=== PATIENT | male | born 1955 | race Caucasian/White ===

== ENCOUNTER 2019-05-21 21:05 | Observation (INO) ==
[2019-05-21] MEDS ORDERED: 0.9 % Sodium Chloride 1,000 ML IVC ONE (21:41)
--- NOTE | 2019-05-21 21:45 | Emergency Department Note ---
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 Lung location: unspecified part of lung Qualified Code(s): B59 - Pneumocystosis HIV (human immunodeficiency virus infection) Qualifiers: HIV symptom status: symptomatic Qualified Code(s): B20 - Human immunodeficiency virus [HIV] disease Disposition: Admitted As Inpatient Condition: Fair Referrals: Umair Littlejohn MD [Primary Care Provider] - Forms: ED Satisfaction Letter Time of Disposition: 07:31 Weakness HPI - General Chief complaint: ED Weakness Stated complaint: cp Time Seen by Provider: 05/21/19 21:29 Source: patient, family Limitations: altered mental status Nursing Notes Reviewed: Yes Vital Signs Reviewed: Yes - History of Present Illness HPI Narrative: 63-year-old male is brought to the emergency department for evaluation of generalized weakness. According to family members the patient is weak that he is unable to ambulate. The patient is slow to respond but states his only complaint is some low back discomfort. He denies any current shortness of breath, chest pain, abdominal pain, nausea vomiting, diarrhea, or urinary symptoms of dysuria urgency frequency or hematuria. Patient does have significant chronic medical problems including HIV, nonalcoholic cirrhosis, and osteomyelitis of his right heel. He was recently admitted in March at [facility] related to chest pain shortness of breath and ascites Pain Scale: 0 - Related Data Home Medications Medication Instructions Recorded Confirmed Gabapentin [Neurontin] 900 mg PO TID 10/04/17 05/21/19 Insulin DETEMIR [Levemir Flextouch] 38 unit SQ QPM 10/04/17 05/21/19 Insulin DETEMIR [Levemir Flextouch] 42 unit SQ QAM 10/04/17 05/21/19 Nadolol 20 mg PO DAILY 10/04/17 05/21/19 Omeprazole [PriLOSEC] 20 mg PO DAILY 10/04/17 05/21/19 OxyCODONE Immed Rel [Roxicodone 10 10 mg PO Q6H PRN 10/04/17 05/21/19 MG] Oxycodone HCl [Roxicodone 30 MG 30 mg PO Q4H PRN 10/04/17 05/21/19 Immed Release] Somatropin [Serostim] 6 mg SQ DAILY 10/04/17 05/21/19 Dextroamphetamine/Amphetamine 10 mg PO DAILY 03/25/19 05/21/19 [Adderall 10 mg Tablet] SitaGLIPtin [Januvia] 100 mg PO DAILY 03/25/19 05/21/19 ARIPiprazole [Abilify] 5 mg PO DAILY 05/21/19 05/21/19 Ciprofloxacin [Cipro] 500 mg PO BID 05/21/19 05/21/19 Cyclobenzaprine [Flexeril] 10 mg PO TID 05/21/19 05/21/19 Efavirenz/Emtricitabine/Tenofo 1 tab PO DAILY 05/21/19 05/21/19 [Atripla Tablet] Empagliflozin [Jardiance] 25 mg PO DAILY 05/21/19 05/21/19 Furosemide [Lasix] 40 mg PO DAILY 05/21/19 05/21/19 Metformin HCl 1,000 mg PO BID 05/21/19 05/21/19 Pioglitazone [Actos] 30 mg PO DAILY 05/21/19 05/21/19 Rifaximin [Xifaxan] 550 mg PO BID 05/21/19 05/21/19 Spironolactone [Aldactone] 25 mg PO HS 05/21/19 05/21/19 Spironolactone [Aldactone] 50 mg PO DAILY 05/21/19 05/21/19 Allergies Allergy/AdvReac Type Severity Reaction Status Date / Time No Known Allergies Allergy Verified 06/21/15 21:11 Review of Systems: As Per HPI Limitations: ROS unobtainable due to patients medical condition Past Medical History - Past Medical History Attestation: Yes The following information was validated with the patient. Source: patient Medical history: Reports: cirrhosis, diabetes, HIV/AIDS, hyperlipidemia, hypertension, renal disease, other Surgical history: Reports: cholecystectomy, other Psychiatric history: Reports: anxiety, depression - Social History Smoking Status: Never smoker Smokeless Tobacco Status: No Alcohol use: Reports: none Drug use: Reports: none Physical Exam Constitutional: Patient is awake but slow to respond, appears chronically ill and emaciated and cooperative. HENT: Head: Normocephalic and atraumatic. Right Ear: External ear normal. Left Ear: External ear normal. Nose: Nose normal. Mouth/Throat: Oropharynx is clear and mucous membranes show moderate dehydration Eyes: Conjunctivae and EOM are normal. Pupils are equal, round, and reactive to light. Right eye exhibits [no] discharge. Left eye exhibits [no] discharge. Neck: Trachea is midline, normal range of motion and [phonation normal]. Neck supple. Cardiovascular: [Regular rhythm], S1 normal, S2 normal, normal heart sounds and intact distal pulses. Exam reveals no gallop and no friction rub. No murmur heard. [Capillary refill is brisk.] [Peripheral pulses are 2+] Pulmonary/Chest: Effort [normal] No stridor. [No] tachypnea. [No] respiratory distress. There are [no] decreased breath sounds. [There no wheezes, no rhonchi, or rales.] Abdominal: Soft. [Bowel sounds are normal]. There exhibits ascites distention of a mild amount . There is no significant tenderness, [no] CVA tenderness. There is [no rigidity, no rebound, no guarding]. Musculoskeletal: Normal range of motion of uninvolved extremities. There exhib its [no edema]. He has no tenderness of palpation of his back or with movement Neurological: Patient is awake and slow to respond he sometimes can answer questions and other times he does not answer you Patient displays no atrophy and no tremor. Moves all 4 extremities equally without gross deficit. No cranial nerve deficit and exhibits normal muscle tone. Coordination normal grossly. Skin: Skin is warm and dry. No erythema. No rash noted. Psychiatric: Patient has a depressed mood Course Course Narrative: Patient was discussed with [facility] who currently is at capacity. They are putting him on a waiting list. I am going to treat him overnight with IV fluids and antibiotics for possible Pneumocystis carinii infection. Patient was discussed with hospitalist for observation admission until bed becomes available at [facility] - Reevaluation(s) Reevaluation #1: Patient has been observed for 10 hours here in the emergency department and remains hemodynamically stable. Pulse oximeters continued to remain high at 97 and 98%. I discussed the case with Dr. Fink for hospitalist admission until bed becomes available at [facility] Vital Signs Temperature 99.8 F H 05/21/19 21:12 Pulse Rate 111 05/21/19 21:12 Respiratory Rate 20 05/21/19 21:12 Blood Pressure 133/67 05/21/19 21:12 O2 Sat by Pulse Oximetry 95 05/21/19 21:12 Temperature 99.8 F H 05/21/19 21:12 Pulse Rate 93 05/22/19 06:30 Respiratory Rate 16 05/22/19 06:30 Blood Pressure 113/60 05/22/19 06:30 O2 Sat by Pulse Oximetry 98 05/22/19 05:00 Oxygen Delivery Oxygen Delivery Room Air Weakness - Medical Records Medical records reviewed: Yes I reviewed the patient's medical records. - Lab Data Lab results reviewed: Yes I reviewed the patient's lab results. Result diagrams: 05/21/19 21:55 05/21/19 21:55 Lab Results 05/21/19 05/21/19 05/21/19 Range/Units 21:08 21:55 21:55 WBC 9.3 (4.3-11.1) K/mcL RBC 2.88 L (4.19-5.50) M/mcL Hgb 8.0 L (12.9-16.9) g/dL Hct 25.0 L (37.5-50.1) % MCV 86.8 (83.0-100.0) fL MCH 27.8 L (28.0-33.3) pg MCHC 32.0 (31.6-35.5) g/dL RDW 19.1 H (11.5-14.5) % Plt Count 82 L (140-400) K/mcL MPV 8.8 L (9.4-12.4) fL Immature Gran % 0.6 (0-4) % Seg Neutrophils % 86.8 % Lymphocytes % 6.9 % Monocytes % 5.6 % Eosinophils % 0.0 % Basophils % 0.1 % Neutrophils # 8.1 (1.6-8.9) K/mcL Lymphocytes # 0.6 (0.6-4.6) K/mcL Monocytes # 0.5 (0.0-1.3) K/mcL Eosinophils # 0.0 (0.0-0.6) K/mcL Basophils # 0.0 (0.0-0.2) K/mcL PT 13.8 H (9.4-12.1) Seconds INR 1.2 APTT (26.0-36.0) Seconds Sodium (136-145) mEq/L Potassium (3.5-5.1) mEq/L Chloride (98-107) mEq/L Carbon Dioxide (23-29) mEq/L BUN (8-23) mg/dL Creatinine (0.70-1.30) mg/dL Est GFR ( Amer) (> 60) Est GFR (Non-Af Amer) (> 60) BUN/Creatinine Ratio (6-26) Glucose (70-105) mg/dL POC Glucose 191 H (70-99) mg/dL Calculated Osmolality (280-300) Lactic Acid (0.5-2.2) mmol/L Calcium (8.6-10.3) mg/dL Magnesium (1.6-2.6) mg/dL Total Bilirubin (0.3-1.0) mg/dL AST (13-39) Units/L ALT (7-52) Units/L Alkaline Phosphatase (34-104) Units/L Ammonia (16-53) mcmol/L Troponin I (< 0.04) ng/mL Serum Total Protein (6.4-8.9) g/dL Albumin (3.5-5.7) g/dL Globulin (2.4-3.5) g/dL Albumin/Globulin Ratio (1.1-2.2) Urine Color (Yellow) Urine Clarity (Clear) Urine pH (5.0-8.0) pH Units Ur Specific [place] (1.010-1.025) Urine Protein (Neg-Trace) mg/dL Urine Glucose (UA) (Normal) mg/dL Urine Ketones (Negative) mg/dL Urine Blood (Negative) Urine Nitrite (Negative) Urine Bilirubin (Negative) Urine Urobilinogen (Normal) mg/dL Ur Leukocyte Esterase (Negative) Urine Microscopic RBC (0-3) per hpf Amorphous Sediment (Few) Ur Culture Indicated? (NO) 05/21/19 05/21/19 05/21/19 Range/Units 21:55 21:55 21:55 WBC (4.3-11.1) K/mcL RBC (4.19-5.50) M/mcL Hgb (12.9-16.9) g/dL Hct (37.5-50.1) % MCV (83.0-100.0) fL MCH (28.0-33.3) pg MCHC (31.6-35.5) g/dL RDW (11.5-14.5) % Plt Count (140-400) K/mcL MPV (9.4-12.4) fL Immature Gran % (0-4) % Seg Neutrophils % % Lymphocytes % % Monocytes % % Eosinophils % % Basophils % % Neutrophils # (1.6-8.9) K/mcL Lymphocytes # (0.6-4.6) K/mcL Monocytes # (0.0-1.3) K/mcL Eosinophils # (0.0-0.6) K/mcL Basophils # (0.0-0.2) K/mcL PT (9.4-12.1) Seconds INR APTT 31.6 (26.0-36.0) Seconds Sodium 133 L (136-145) mEq/L Potassium 3.9 (3.5-5.1) mEq/L Chloride 100 (98-107) mEq/L Carbon Dioxide 28 (23-29) mEq/L BUN 19 (8-23) mg/dL Creatinine 1.42 H (0.70-1.30) mg/dL Est GFR ( Amer) > 60 (> 60) Est GFR (Non-Af Amer) 51 L (> 60) BUN/Creatinine Ratio 13 (6-26) Glucose 194 H (70-105) mg/dL POC Glucose (70-99) mg/dL Calculated Osmolality 284 (280-300) Lactic Acid (0.5-2.2) mmol/L Calcium 8.4 L (8.6-10.3) mg/dL Magnesium 2.1 (1.6-2.6) mg/dL Total Bilirubin 1.9 H (0.3-1.0) mg/dL AST 50 H (13-39) Units/L ALT 25 (7-52) Units/L Alkaline Phosphatase 393 H (34-104) Units/L Ammonia 49 (16-53) mcmol/L Troponin I 0.03 (< 0.04) ng/mL Serum Total Protein 7.9 (6.4-8.9) g/dL Albumin 2.9 L (3.5-5.7) g/dL Globulin 5.0 H (2.4-3.5) g/dL Albumin/Globulin Ratio 0.6 L (1.1-2.2) Urine Color (Yellow) Urine Clarity (Clear) Urine pH (5.0-8.0) pH Units Ur Specific [place] (1.010-1.025) Urine Protein (Neg-Trace) mg/dL Urine Glucose (UA) (Normal) mg/dL Urine Ketones (Negative) mg/dL Urine Blood (Negative) Urine Nitrite (Negative) Urine Bilirubin (Negative) Urine Urobilinogen (Normal) mg/dL Ur Leukocyte Esterase (Negative) Urine Microscopic RBC (0-3) per hpf Amorphous Sediment (Few) Ur Culture Indicated? (NO) 05/21/19 05/21/19 Range/Units 21:55 22:47 WBC (4.3-11.1) K/mcL RBC (4.19-5.50) M/mcL Hgb (12.9-16.9) g/dL Hct (37.5-50.1) % MCV (83.0-100.0) fL MCH (28.0-33.3) pg MCHC (31.6-35.5) g/dL RDW (11.5-14.5) % Plt Count (140-400) K/mcL MPV (9.4-12.4) fL Immature Gran % (0-4) % Seg Neutrophils % % Lymphocytes % % Monocytes % % Eosinophils % % Basophils % % Neutrophils # (1.6-8.9) K/mcL Lymphocytes # (0.6-4.6) K/mcL Monocytes # (0.0-1.3) K/mcL Eosinophils # (0.0-0.6) K/mcL Basophils # (0.0-0.2) K/mcL PT (9.4-12.1) Seconds INR APTT (26.0-36.0) Seconds Sodium (136-145) mEq/L Potassium (3.5-5.1) mEq/L Chloride (98-107) mEq/L Carbon Dioxide (23-29) mEq/L BUN (8-23) mg/dL Creatinine (0.70-1.30) mg/dL Est GFR ( Amer) (> 60) Est GFR (Non-Af Amer) (> 60) BUN/Creatinine Ratio (6-26) Glucose (70-105) mg/dL POC Glucose (70-99) mg/dL Calculated Osmolality (280-300) Lactic Acid 1.3 (0.5-2.2) mmol/L Calcium (8.6-10.3) mg/dL Magnesium (1.6-2.6) mg/dL Total Bilirubin (0.3-1.0) mg/dL AST (13-39) Units/L ALT (7-52) Units/L Alkaline Phosphatase (34-104) Units/L Ammonia (16-53) mcmol/L Troponin I (< 0.04) ng/mL Serum Total Protein (6.4-8.9) g/dL Albumin (3.5-5.7) g/dL Globulin (2.4-3.5) g/dL Albumin/Globulin Ratio (1.1-2.2) Urine Color Dark Yellow (Yellow) Urine Clarity Slightly Cloudy A (Clear) Urine pH 6.0 (5.0-8.0) pH Units Ur Specific [place] 1.020 (1.010-1.025) Urine Protein 100 H (Neg-Trace) mg/dL Urine Glucose (UA) >=1000 H (Normal) mg/dL Urine Ketones Negative (Negative) mg/dL Urine Blood Large H (Negative) Urine Nitrite Negative (Negative) Urine Bilirubin Negative (Negative) Urine Urobilinogen Normal (Normal) mg/dL Ur Leukocyte Esterase Negative (Negative) Urine Microscopic RBC 5-15 H (0-3) per hpf Amorphous Sediment Few (Few) Ur Culture Indicated? NO (NO) - Radiology Data Radiology results reviewed: Yes I reviewed the patient's radiology results. IMPRESSION: Patchy airspace opacification seen in both lungs could represent a multifocal pneumonia - EKG Data EKG attestation: Yes I reviewed and interpreted this EKG. EKG shows normal: sinus rhythm, axis, intervals, QRS complexes, ST-T waves Rate: tachycardia Interpretation: no acute changes
[2019-05-21 22:09] LABS: Basophils % 0.1 %; Immature Granulocytes % 0.6 % (0-4); Lymphocytes # 0.6 K/mcL (0.6-4.6); Lymphocytes % 6.9 %; Mean Corpuscular Hemoglobin 27.8 pg (28.0-33.3); Mean Corpuscular Volume 86.8 fL (83.0-100.0); Mean Platelet Volume 8.8 fL (9.4-12.4); Monocytes # 0.5 K/mcL (0.0-1.3); Monocytes % 5.6 %; Neutrophils # 8.1 K/mcL (1.6-8.9); Red Blood Count 2.88 M/mcL (4.19-5.50); Red Cell Distribution Width 19.1 % (11.5-14.5); Segmented Neutrophils % 86.8 %; White Blood Count 9.3 K/mcL (4.3-11.1)
[2019-05-21 22:10] LABS: Platelet Count 82 K/mcL (140-400)
[2019-05-21 22:12] LABS: INR 1.2; Prothrombin Time 13.8 Seconds (9.4-12.1)
[2019-05-21 22:23] LABS: Troponin I 0.03 ng/mL (< 0.04)
[2019-05-21 22:24] LABS: Alanine Aminotransferase 25 Units/L (7-52); Albumin 2.9 g/dL (3.5-5.7); Albumin/Globulin Ratio 0.6 (1.1-2.2); Alkaline Phosphatase 393 Units/L (34-104); Aspartate Amino Transferase 50 Units/L (13-39); BUN/Creatinine Ratio 13 (6-26); Bilirubin,Total 1.9 mg/dL (0.3-1.0); Blood Urea Nitrogen 19 mg/dL (8-23); Calcium 8.4 mg/dL (8.6-10.3); Carbon Dioxide 28 mEq/L (23-29); Chloride 100 mEq/L (98-107); Glucose 194 mg/dL (70-105); Magnesium 2.1 mg/dL (1.6-2.6); Osmolality,Calculated 284 (280-300); Potassium 3.9 mEq/L (3.5-5.1); Sodium 133 mEq/L (136-145); Total Protein 7.9 g/dL (6.4-8.9); eGFR For African Americans > 60 (> 60); eGFR For Non-African Americans 51 (> 60)
[2019-05-21 22:54] LABS: Bilirubin,Urine Negative (Negative); Blood,Urine Large (Negative); Clarity,Urine Slightly Cloudy (Clear); Glucose,Urine (UA) >=1000 mg/dL (Normal); Ketones,Urine Negative (Negative); Leukocyte Esterase,Urine Negative (Negative); Nitrite,Urine Negative (Negative); Protein,Urine 100 mg/dL (Neg-Trace); Urobilinogen,Urine Normal (Normal)
[2019-05-21 23:00] LABS: Amorphous Sediment,Urine Few (Few); Color,Urine Dark Yellow (Yellow)
[2019-05-21] MEDS ORDERED: Sulfamethoxazole/Trimeth DS 1 EACH TABLET PO ONE (23:03)
[2019-05-21] MEDS ORDERED: 0.9 % Sodium Chloride 1,000 ML IVC SCH (23:30)
[2019-05-22] MEDS ORDERED: WATER IVPB SCH
[2019-05-22] MEDS ORDERED: SULFAMETHOXAZOLE IVPB SCH
[2019-05-22] MEDS ORDERED: TRIMETH IVPB SCH
[2019-05-22] MEDS ORDERED: D5 IVPB SCH
[2019-05-22] MEDS ORDERED: *HR* OxyCODONE Immed Rel 15 MG TABLET PO PRN (07:28)
[2019-05-22] MEDS ORDERED: *HR* OxyCODONE Immed Rel 5 MG TABLET PO PRN (07:28)
[2019-05-22] MEDS ORDERED: Naloxone 0.4 MG/ML INJ IVP PRN (07:28)
[2019-05-22] MEDS ORDERED: Ondansetron 4 MG/2 ML VIAL IVP PRN (07:28)
[2019-05-22] MEDS ORDERED: D5 IVPB ONE ×2 (08:00)
[2019-05-22] MEDS ORDERED: WATER IVPB ONE ×2 (08:00)
[2019-05-22] MEDS ORDERED: TRIMETH IVPB ONE ×2 (08:00)
[2019-05-22] MEDS ORDERED: SULFAMETHOXAZOLE IVPB ONE ×2 (08:00)
[2019-05-22] MEDS ORDERED: TENOFO PO SCH ×2 (09:00→21:00)
[2019-05-22] MEDS ORDERED: EFAVIRENZ PO SCH ×2 (09:00→21:00)
[2019-05-22] MEDS ORDERED: Insulin DETEMIR 100 UNIT/ML X5UNITS SQ SCH ×3 (09:00→18:00)
[2019-05-22] MEDS ORDERED: EMTRICITABINE PO SCH ×2 (09:00→21:00)
--- NOTE | 2019-05-22 10:28 | Internal Med History&Physical ---
Date of Encounter: 05/22/19 Time of Encounter: 10:25 Assessment and Plan (1) Pneumocystis carinii pneumonia Current visit: Yes Status: Acute Patient presented to emergency department with complaints of malaise. Denied any fever or chills. Denies productive cough or dyspnea. Chest x-ray and emergency department showed multifocal areas of pneumonia. Patient was started on IV Bactrim. We will continue with current antibiotics. Patient awaiting tra nsfer to [facility] for further management due to complications of his HIV. Qualifiers: Laterality: bilateral Lung location: unspecified part of lung Qualified Code(s): B59 - Pneumocystosis (2) Osteomyelitis Current visit: Yes Status: Acute Patient with current treatment of osteomyelitis of a right heel. Patient arrived with wound VAC in place. Due to policies of no outside source wound VAC being on the unit, we will remove the wound VAC and continue with wet-to-dry dressing changes until patient is transferred to [facility]. Patient with no complain ts of discomforts to the wound as he has neuropathy. Qualifiers: Osteomyelitis type: unspecified type Osteomyelitis location: foot Laterality: right Qualified Code(s): M86.9 - Osteomyelitis, unspecified (3) HIV (human immunodeficiency virus infection) Current visit: Yes Status: Acute Patient admitted with diarrhea, likely secondary to his HIV. We will continue with current antiviral medications that he was taken at home. Patient awaiting for bed at [facility] for further evaluation and treatment with infectious disease at [facility], as they are familiar with patient Qualifiers: HIV symptom status: symptomatic Qualified Code(s): B20 - Human immunodeficiency virus [HIV] disease (4) Cirrhosis Current visit: Yes Status: Acute Patient with a history of cirrhosis and ascites. Currently no issues noted with no signs of moderate ascites on exam. Patient was slight elevations on LFTs during admission drawl. We will continue to monitor patient's status to serial labs while he is admitted here. Qualifiers: Hepatic cirrhosis type: unspecified hepatic cirrhosis Ascites presence: with ascites Qualified Code(s): K74.60 - Unspecified cirrhosis of liver; R18.8 - Other ascites (5) Diabetes Current visit: Yes Status: Chronic No acute issues at this time. We will continue with current medication regimen the patient was taken at home and will monitor patient's glucose through fingersticks Qualifiers: Diabetes mellitus type: type 2 Diabetes mellitus intermodal owner operator truck driver insulin use: unspecified intermodal owner operator truck driver insulin use status Diabetes mellitus complication status: with other specified complication Qualified Code(s): E11.69 - Type 2 diabetes mellitus with other specified complication Internal Medicine - H&P: HPI Chief complaint: pneumonia Admitted From: Emergency Dept Plans for Post Hospital Care: Home History of present illness: Mr. Mccoy is a 63 year old male, who presented to the emergency department for evaluation of generalized weakness. According to family members the patient is weak that he is unable to ambulate. Patient's ambulation was also complicated by a non-healing wound to his right heel, which she has been treated for osteomyelitis and currently has a wound VAC in place. Medical records showed that while in the emergency department he denied any current shortness of breath, chest pain, abdominal pain, nausea vomiting, diarrhea, or urinary symptoms of dysuria urgency frequency or hematuria. Patient does have significant chronic medical problems including HIV, nonalcoholic cirrhosis, and osteomyelitis of his right heel. He was recently admitted in March at [facility] related to chest pain shortness of breath and ascites. Patient continues to deny any discomforts or shortness of breath. Patient denies any pain to his right foot, which she states is due to the numbness of his neuropathy. Patient denies any productive cough. No records of hypoxia noted. Chest x-ray was obtained in emergency department which showed multifocal areas of pneumonia. Patient has been afebrile. Patient was started on IV antibiotics while emergency department. Patient also currently has a wound VAC, which was brought from home. Dressing to right foot and ankle shows moderate amount of serous drainage present and wound VAC currently shows a airleak. Scant serous trace received. Patient was to be transferred to [facility] for further evaluation and treatment due to the complications of his HIV. Patient is well-known to the service at [facility] and is awaiting for a bed to open. Patient admitted to medical floor for continued treatment until a transfer to be arranged Past Med Surg Social Fam HX - Past Medical History Medical history: cirrhosis, diabetes, HIV/AIDS, hyperlipidemia, hypertension, renal disease, other Additional medical history: ARENAS. HEPATIC ENCEPHALOPATHY. THROMBOCYTOPENIA. PERIPHERAL NEUROPATHY. HIV WASTING Psychiatric history: anxiety, depression - Past Surgical History Surgical History: cholecystectomy, other Additional surgical history: knee surgery, shoulder surgery - Social History Smoking Status: Never smoker Smokeless Tobacco Status: No Alcohol use: none Drug use: none Internal Medicine - H&P: Meds Gabapentin [Neurontin] 900 mg PO TID 10/04/17 [History] Insulin DETEMIR [Levemir Flextouch] 38 unit SQ QPM 10/04/17 [History] Insulin DETEMIR [Levemir Flextouch] 42 unit SQ QAM 10/04/17 [History] Nadolol 20 mg PO DAILY 10/04/17 [History] Omeprazole [PriLOSEC] 20 mg PO DAILY 10/04/17 [History] OxyCODONE Immed Rel [Roxicodone 10 MG] 10 mg PO Q6H PRN 10/04/17 [History] Oxycodone HCl [Roxicodone 30 MG Immed Release] 30 mg PO Q4H PRN 10/04/17 [History] Somatropin [Serostim] 6 mg SQ DAILY 10/04/17 [History] Dextroamphetamine/Amphetamine [Adderall 10 mg Tablet] 10 mg PO DAILY 03/25/19 [History] SitaGLIPtin [Januvia] 100 mg PO DAILY 03/25/19 [History] ARIPiprazole [Abilify] 5 mg PO DAILY 05/21/19 [History] Ciprofloxacin [Cipro] 500 mg PO BID 05/21/19 [History] Cyclobenzaprine [Flexeril] 10 mg PO TID 05/21/19 [History] Efavirenz/Emtricitabine/Tenofo [Atripla Tablet] 1 tab PO DAILY 05/21/19 [History] Empagliflozin [Jardiance] 25 mg PO DAILY 05/21/19 [History] Furosemide [Lasix] 40 mg PO DAILY 05/21/19 [History] Metformin HCl 1,000 mg PO BID 05/21/19 [History] Pioglitazone [Actos] 30 mg PO DAILY 05/21/19 [History] Rifaximin [Xifaxan] 550 mg PO BID 05/21/19 [History] Spironolactone [Aldactone] 25 mg PO HS 05/21/19 [History] Spironolactone [Aldactone] 50 mg PO DAILY 05/21/19 [History] Allergy/AdvReac Type Severity Reaction Status Date / Time No Known Allergies Allergy Verified 06/21/15 21:11 All Systems PM: A 10-system review of systems was performed and is negative for pertinent findings except as documented above in the HPI. - Constitutional Constitutional: as per HPI, no chills, no fever(s), no night sweats - EENT Eyes: as per HPI, no change in vision, no discharge, no pain, no photophobia Ears: as per HPI, no ear discharge, no ear pain, no tinnitus Nose, mouth and throat: as per HPI, no dysphagia, no nasal discharge, no neck pain, no sore throat - Breasts Breasts: as per HPI - Cardiovascular Cardiovascular ROS IM: as per HPI, no chest pain, no diaphoresis, no dyspnea, no lightheadedness, no palpitations, no syncope - Respiratory Respiratory: as per HPI, no cough, no dyspnea, no wheezing, no excessive phlegm production - Gastrointestinal Gastrointestinal: as per HPI, no abdominal pain, no diarrhea, no hematemesis, no hematochezia, no melena, no nausea, no vomiting - Genitourinary Genitourinary ROS male: as per HPI - Musculoskeletal Musculoskeletal ROS IM: as per HPI, no numbness, no tingling - Integumentary Integumentary IM: as per HPI, no rash, no unusual bruising - Neurological Neurological ROS: as per HPI, no confusion, no convulsions, no focal weakness, no numbness, no tingling, no tremor(s) - Psychiatric Psychiatric: as per HPI - Hematologic/Lymphatic Hematologic/Lymphatic: no easy bruising - Constitutional Vitals: Temp Pulse Resp BP Pulse Ox 99.8 F H 90 16 103/55 98 05/21/19 21:12 05/22/19 07:33 05/22/19 07:33 05/22/19 07:33 05/22/19 07:33 General appearance: Present: A&O X 3, pleasant - Head Head exam: Present: atraumatic, normocephalic - Eye Eye exam: Present: PERRL, conjuntiva pink, sclera anicteric Pupils: Present: PERRL - Neck Neck exam general surgery: Present: supple, trachea midline. Absent: lymphadenopathy - Respiratory Respiratory exam: Present: CTAB. Absent: accessory muscle use, rales, rhonchi, wheezes - Cardiovascular Cardiovascular exam: Present: RRR, +S1, +S2. Absent: diastolic murmur, gallop, rubs, systolic murmur - GI/Abdominal GI/Abdominal exam: Present: normal bowel sounds, soft, no peritoneal signs. Absent: distended, tenderness - Extremities Exam Extremities exam: Present: warm, radial pulses palpable and symmetrical. Absent: calf tenderness, cyanotic, pedal edema Additional comments: Right foot and ankle Kerlex dressing with moderate amount of serous drainage present. Wound VAC in place. - Neurological Exam Neurological exam: Present: CN II-XII intact, oriented X3, no focal deficits. Absent: pronater drift, facial droop, speech deficit - Skin Skin exam: Present: dry, intact Internal Med - H&P Results - Labs CBC & Chem 7: 05/21/19 21:55 05/22/19 08:10 Labs: Short CBC 05/21/19 Range/Units 21:55 WBC 9.3 (4.3-11.1) K/mcL Hgb 8.0 L (12.9-16.9) g/dL Hct 25.0 L (37.5-50.1) % Plt Count 82 L (140-400) K/mcL Neutrophils # 8.1 (1.6-8.9) K/mcL BMP 05/21/19 05/22/19 21:55 08:10 Sodium 133 L Potassium 3.9 3.6 Chloride 100 Carbon Dioxide 28 BUN 19 Creatinine 1.42 H Glucose 194 H Calcium 8.4 L Cardiac Enzymes 05/21/19 Range/Units 21:55 Troponin I 0.03 (< 0.04) ng/mL Liver Function 05/21/19 Range/Units 21:55 Total Bilirubin 1.9 H (0.3-1.0) mg/dL AST 50 H (13-39) Units/L ALT 25 (7-52) Units/L Alkaline Phosphatase 393 H (34-104) Units/L Albumin 2.9 L (3.5-5.7) g/dL Urine 05/21/19 Range/Units 22:47 Urine Color Dark Yellow (Yellow) Urine Clarity Slightly Cloudy A (Clear) Urine pH 6.0 (5.0-8.0) pH Units Ur Specific [place] 1.020 (1.010-1.025) Urine Protein 100 H (Neg-Trace) mg/dL Urine Glucose (UA) >=1000 H (Normal) mg/dL
[2019-05-22] MEDS: ARIPiprazole 2 MG TABLET PO SCH (11:01)
[2019-05-22] MEDS: *HR* Metformin 500 MG TABLET PO SCH ×2 (11:01→20:12)
[2019-05-22] MEDS: *HR* SitaGLIPtin 100 MG TABLET PO SCH (11:02)
[2019-05-22] MEDS: Gabapentin 300 MG CAPSULE PO SCH ×3 (11:02→21:26)
[2019-05-22] MEDS: *HR* Pioglitazone 30 MG TABLET PO SCH (11:02)
[2019-05-22] MEDS: 0.9 % Sodium Chloride 1,000 ML IVC SCH ×3 (11:03→20:57)
[2019-05-22] MEDS ORDERED: Lactulose Oral Soln 20 GM/30 ML UDC PO SCH (15:00)
[2019-05-22] MEDS: SULFAMETHOXAZOLE IVPB SCH (17:39)
[2019-05-22] MEDS: D5 IVPB SCH (17:39)
[2019-05-22] MEDS: WATER IVPB SCH (17:39)
[2019-05-22] MEDS: TRIMETH IVPB SCH (17:39)
[2019-05-22] MEDS: SOMATROPIN 6 MG SQ SCH (18:04)
[2019-05-22] MEDS: Dextroamphetamine/Amphetamine [Adderall 10 Mg Tablet] PO SCH (18:05)
[2019-05-22] MEDS ORDERED: Lactulose Oral Soln 20 GM/30 ML UDC PO PRN (18:07)
[2019-05-22] MEDS: *HR* Heparin 5,000 UNIT/ML VIAL SQ SCH (18:58)
[2019-05-22] MEDS: (Empagliflozin [Jardiance] 25 MG) PO SCH (18:59)
[2019-05-22] MEDS: Insulin DETEMIR 100 UNIT/ML X5UNITS SQ SCH (20:12)
[2019-05-22] MEDS ORDERED: Spironolactone 25 MG TABLET PO SCH (21:00)
[2019-05-23] MEDS: SULFAMETHOXAZOLE IVPB SCH ×2 (01:45→11:31)
[2019-05-23] MEDS: TRIMETH IVPB SCH ×2 (01:45→11:31)
[2019-05-23] MEDS: D5 IVPB SCH ×2 (01:45→11:31)
[2019-05-23] MEDS: WATER IVPB SCH ×2 (01:45→11:31)
[2019-05-23 02:19] LABS: Acinetobacter baumannii by PCR Not Detected (Not Detect); Candida albicans by PCR Not Detected (Not Detect); Candida glabrata by PCR Not Detected (Not Detect); Candida krusei by PCR Not Detected (Not Detect); Candida parapsilosis by PCR Not Detected (Not Detect); Candida tropicalis by PCR Not Detected (Not Detect); Enterobacter cloacae Cmplx PCR Not Detected (Not Detect); Enterobacteriaceae by PCR Not Detected (Not Detect); Enterococcus by PCR Not Detected (Not Detect); Escherichia coli by PCR Not Detected (Not Detect); Klebsiella oxytoca by PCR Not Detected (Not Detect); Klebsiella pneumoniae by PCR Not Detected (Not Detect); Proteus by PCR Not Detected (Not Detect); Pseudomonas aeruginosa by PCR Not Detected (Not Detect); Serratia marcescens by PCR Not Detected (Not Detect); Staphylococcus aureus by PCR Not Detected (Not Detect); Staphylococcus by PCR Not Detected (Not Detect); Streptococcus agalactiae(B)PCR DETECTED (Not Detect); Streptococcus pneumoniae PCR Not Detected (Not Detect); Streptococcus pyogenes (A) PCR Not Detected (Not Detect)
[2019-05-23] MEDS: *HR* Heparin 5,000 UNIT/ML VIAL SQ SCH (06:24)
[2019-05-23] MEDS ORDERED: Piperacillin/Tazobactam 3.375 GM in 0.9 % Sodium Chloride Mini Bag 100 ML IVPB ONE (07:52)
[2019-05-23 08:09] LABS: Basophils % 0.3 %; Eosinophils # 0.1 K/mcL (0.0-0.6); Eosinophils % 1.8 %; Hematocrit 23.2 % (37.5-50.1); Hemoglobin 7.5 g/dL (12.9-16.9); Immature Granulocytes % 0.5 % (0-4); Mean Corpuscular HGB Conc 32.3 g/dL (31.6-35.5); Mean Corpuscular Hemoglobin 27.7 pg (28.0-33.3); Mean Corpuscular Volume 85.6 fL (83.0-100.0); Mean Platelet Volume 9.1 fL (9.4-12.4); Monocytes # 0.6 K/mcL (0.0-1.3); Monocytes % 9.2 %; Neutrophils # 4.4 K/mcL (1.6-8.9); Red Blood Count 2.71 M/mcL (4.19-5.50); Segmented Neutrophils % 72.2 %; White Blood Count 6.1 K/mcL (4.3-11.1)
[2019-05-23 08:21] LABS: Platelet Count 93 K/mcL (140-400)
[2019-05-23 08:25] LABS: BUN/Creatinine Ratio 18 (6-26); Blood Urea Nitrogen 24 mg/dL (8-23); Calcium 7.3 mg/dL (8.6-10.3); Carbon Dioxide 24 mEq/L (23-29); Chloride 101 mEq/L (98-107); Glucose 122 mg/dL (70-105); Osmolality,Calculated 277 (280-300); Potassium 3.7 mEq/L (3.5-5.1); Sodium 131 mEq/L (136-145); eGFR For African Americans > 60 (> 60); eGFR For Non-African Americans 53 (> 60)
[2019-05-23] MEDS: 0.9 % Sodium Chloride 1,000 ML IVC SCH (08:50)
[2019-05-23] MEDS: *HR* Pioglitazone 30 MG TABLET PO SCH (08:51)
[2019-05-23] MEDS: ARIPiprazole 2 MG TABLET PO SCH (08:51)
[2019-05-23] MEDS: *HR* Metformin 500 MG TABLET PO SCH (08:52)
[2019-05-23] MEDS: *HR* SitaGLIPtin 100 MG TABLET PO SCH (08:52)
[2019-05-23] MEDS: Gabapentin 300 MG CAPSULE PO SCH (08:53)
[2019-05-23] MEDS: Insulin DETEMIR 100 UNIT/ML X5UNITS SQ SCH (08:53)
[2019-05-23] MEDS: Dextroamphetamine/Amphetamine [Adderall 10 Mg Tablet] PO SCH (08:54)
[2019-05-23] MEDS: SOMATROPIN 6 MG SQ SCH (08:54)
[2019-05-23] MEDS: (Empagliflozin [Jardiance] 25 MG) PO SCH (08:54)
[2019-05-23] MEDS ORDERED: Insulin DETEMIR 100 UNIT/ML X5UNITS SQ SCH (09:00)
--- NOTE | 2019-05-23 09:17 | Internal Med Progress Note ---
Date of Encounter: 05/23/19 Time of Encounter: 09:15 - Assessment and plan (1) Pneumocystis carinii pneumonia Current Visit: Yes Status: Acute Assessment and plan: Continue IV Bactrim. Denies shortness of breath or cough. Qualifiers: Laterality: bilateral Lung location: unspecified part of lung Qualified Code(s): B59 - Pneumocystosis (2) HIV (human immunodeficiency virus infection) Current Visit: Yes Status: Acute Qualifiers: HIV symptom status: symptomatic Qualified Code(s): B20 - Human immunodeficiency virus [HIV] disease (3) Osteomyelitis Current Visit: Yes Status: Acute Assessment and plan: White blood cell count 6.1. Will consult wound for right heel area. Qualifiers: Osteomyelitis type: unspecified type Osteomyelitis location: foot Laterality: right Qualified Code(s): M86.9 - Osteomyelitis, unspecified (4) Cirrhosis Current Visit: Yes Status: Acute Assessment and plan: Continue lactulose. Monitor labs. Qualifiers: Hepatic cirrhosis type: unspecified hepatic cirrhosis Ascites presence: with ascites Qualified Code(s): K74.60 - Unspecified cirrhosis of liver; R18.8 - Other ascites (5) Diabetes Current Visit: Yes Status: Chronic Assessment and plan: Controlled with insulin. Monitor fingerstick blood sugar. Will adjust medicines as necessary. Qualifiers: Diabetes mellitus type: type 2 Diabetes mellitus predatory animal exterminator insulin use: unspecified fci insulin use status Diabetes mellitus complication status: with other specified complication Qualified Code(s): E11.69 - Type 2 diabetes mellitus with other specified complication - Time Spent With Patient less than 15 minutes - Subjective Interval history: Lying in bed, states he is comfortable. Denies shortness of breath or chest pain, fever, chills, nausea vomiting or diarrhea. Did have a low-grade temp this morning. receiving IV fluids. Creatinine has improved to 1.3. Blood culture group group B strep. Did receive zosyn IV. Continues to be on Bactrim IV. Has chronic right heel wind. Wound care consult it. Awaiting to hear from [facility] when it bed is available and will transfer. - Constitutional Vitals: Temp Pulse Resp BP Pulse Ox 99.2 F 69 18 101/56 95 05/23/19 07:00 05/23/19 07:00 05/23/19 07:00 05/23/19 07:00 05/23/19 07:00 General appearance: Present: A&O X 3, pleasant, no acute distress, answers questions appropriately - Head Head exam: Present: atraumatic, normocephalic - Eye Eye exam: Present: PERRL, conjuntiva pink, sclera anicteric Pupils: Present: PERRL - Neck Neck exam general surgery: Present: supple, trachea midline. Absent: lymphadenopathy - Respiratory Respiratory exam: Present: CTAB. Absent: accessory muscle use, rales, rhonchi, wheezes - Cardiovascular Cardiovascular exam: Present: RRR, +S1, +S2. Absent: diastolic murmur, gallop, rubs, systolic murmur - GI/Abdominal GI/Abdominal exam: Present: normal bowel sounds, soft, no peritoneal signs. Absent: distended, tenderness - Extremities Exam Extremities exam: Present: warm, radial pulses palpable and symmetrical. Absent: calf tenderness, cyanotic, pedal edema - Neurological Exam Neurological exam: Present: CN II-XII intact, oriented X3, no focal deficits. Absent: pronater drift, facial droop, speech deficit - Skin Skin exam: Present: dry, intact Additional comments: Right heel wound dressing dry and intact. Internal Medicine: Result - Labs CBC & Chem 7: 05/23/19 08:00 05/23/19 08:00 Labs: Short CBC 05/23/19 Range/Units 08:00 WBC 6.1 (4.3-11.1) K/mcL Hgb 7.5 L (12.9-16.9) g/dL Hct 23.2 L (37.5-50.1) % Plt Count 93 L (140-400) K/mcL Neutrophils # 4.4 (1.6-8.9) K/mcL BMP 05/23/19 08:00 Sodium 131 L Potassium 3.7 Chloride 101 Carbon Dioxide 24 BUN 24 H Creatinine 1.36 H Glucose 122 H Calcium 7.3 L - ABG Interpretation ABG results: PT/INR, D-dimer PT 13.8 Seconds (9.4-12.1) H 05/21/19 21:55 Consult Discharge Plan - Plan Referrals: Umair Littlejohn MD [Primary Care Provider] -
--- NOTE | 2019-05-23 10:42 | Discharge Summary ---
Orders not resulted at time of discharge: Pending orders 05/21/19 21:55 Culture,Blood [BC] Stat Date of Encounter: 05/23/19 Time of Encounter: 10:39 - Discharge Diagnosis (1) Pneumocystis carinii pneumonia Priority: Primary Status: Acute Comments: continue bactrim IV. Qualifiers: Laterality: bilateral Lung location: unspecified part of lung Qualified Code(s): B59 - Pneumocystosis (2) HIV (human immunodeficiency virus infection) Priority: Secondary Status: Acute Qualifiers: HIV symptom status: symptomatic Qualified Code(s): B20 - Human immunodeficiency virus [HIV] disease (3) Osteomyelitis Priority: Secondary Status: Acute Comments: follow up with infectious disease and wound care at [facility]. Qualifiers: Osteomyelitis type: unspecified type Osteomyelitis location: foot Laterality: right Qualified Code(s): M86.9 - Osteomyelitis, unspecified (4) Cirrhosis Priority: Secondary Status: Acute Comments: monitor labs. continue lactulose. Qualifiers: Hepatic cirrhosis type: unspecified hepatic cirrhosis Ascites presence: with ascites Qualified Code(s): K74.60 - Unspecified cirrhosis of liver; R18.8 - Other ascites (5) Diabetes Priority: Secondary Status: Chronic Comments: controlled with insulin. monitor FSBS. 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 Mccoy is a 63 year old male Lying in bed, states he is comfortable. was admitted through the ER with increased weakness and found to have PNA. Denies shortness of breath or chest pain, fever, chills, nausea vomiting or diarrhea. Did have a low-grade temp this morning. receiving IV fluids. Creatinine has improved to 1.3. Blood culture group group B strep. Did receive zosyn IV. Continues to be on Bactrim IV. Has chronic right heel wound that started approx 3 months ago. has singh cath. transfering to [facility] medical center. Discharge discussed with: patient, family, nurse - Time Spent with Patient Total time spent providing and/or coordinating discharge services: Time spent: Less than 30 minutes - Discharge Medications Prescriptions: No Action Somatropin [Serostim] 6 mg SQ DAILY Oxycodone HCl [Roxicodone 30 MG Immed Release] 30 mg PO Q4H PRN PRN Reason: Pain OxyCODONE Immed Rel [Roxicodone 10 MG] 10 mg PO Q6H PRN PRN Reason: Pain Omeprazole [PriLOSEC] 20 mg PO DAILY Gabapentin [Neurontin] 900 mg PO TID Nadolol 20 mg PO DAILY Insulin DETEMIR [Levemir Flextouch] 42 unit SQ QAM Insulin DETEMIR [Levemir Flextouch] 38 unit SQ QPM SitaGLIPtin [Januvia] 100 mg PO DAILY Dextroamphetamine/Amphetamine [Adderall 10 mg Tablet] 10 mg PO DAILY Ciprofloxacin [Cipro] 500 mg PO BID Spironolactone [Aldactone] 50 mg PO DAILY Furosemide [Lasix] 40 mg PO DAILY Cyclobenzaprine [Flexeril] 10 mg PO TID Spironolactone [Aldactone] 25 mg PO HS Rifaximin [Xifaxan] 550 mg PO BID Pioglitazone [Actos] 30 mg PO DAILY Metformin HCl 1,000 mg PO BID Empagliflozin [Jardiance] 25 mg PO DAILY Efavirenz/Emtricitabine/Tenofo [Atripla Tablet] 1 tab PO DAILY ARIPiprazole [Abilify] 5 mg PO DAILY Home Medications: Gabapentin [Neurontin] 900 mg PO TID 10/04/17 [History] Insulin DETEMIR [Levemir Flextouch] 38 unit SQ QPM 10/04/17 [History] Insulin DETEMIR [Levemir Flextouch] 42 unit SQ QAM 10/04/17 [History] Nadolol 20 mg PO DAILY 10/04/17 [History] Omeprazole [PriLOSEC] 20 mg PO DAILY 10/04/17 [History] OxyCODONE Immed Rel [Roxicodone 10 MG] 10 mg PO Q6H PRN 10/04/17 [History] Oxycodone HCl [Roxicodone 30 MG Immed Release] 30 mg PO Q4H PRN 10/04/17 [History] Somatropin [Serostim] 6 mg SQ DAILY 10/04/17 [History] Dextroamphetamine/Amphetamine [Adderall 10 mg Tablet] 10 mg PO DAILY 03/25/19 [History] SitaGLIPtin [Januvia] 100 mg PO DAILY 03/25/19 [History] ARIPiprazole [Abilify] 5 mg PO DAILY 05/21/19 [History] Ciprofloxacin [Cipro] 500 mg PO BID 05/21/19 [History] Cyclobenzaprine [Flexeril] 10 mg PO TID 05/21/19 [History] Efavirenz/Emtricitabine/Tenofo [Atripla Tablet] 1 tab PO DAILY 05/21/19 [History] Empagliflozin [Jardiance] 25 mg PO DAILY 05/21/19 [History] Furosemide [Lasix] 40 mg PO DAILY 05/21/19 [History] Metformin HCl 1,000 mg PO BID 05/21/19 [History] Pioglitazone [Actos] 30 mg PO DAILY 05/21/19 [History] Rifaximin [Xifaxan] 550 mg PO BID 05/21/19 [History] Spironolactone [Aldactone] 25 mg PO HS 05/21/19 [History] Spironolactone [Aldactone] 50 mg PO DAILY 05/21/19 [History] Allergies/Adverse Reactions: Allergy/AdvReac Type Severity Reaction Status Date / Time No Known Allergies Allergy Verified 06/21/15 21:11 Date of admission: 05/22/19 07:56 Primary care physician: Umair Littlejohn MD Consults: 05/22/19 10:49 Consult to Nutrition [CONS] Routine Comment: Consulting Provider: NUTRITION Reason for Dietary Consult: MST Score 05/23/19 09:15 Consult to Wound Care [CONS] Routine Reason for Consult: R heel osteomyelitis Call Completed: Yes Discharging clinician: Ross Fink Anticipated date of discharge: 05/23/19 - Constitutional Vitals: see exam on progress note dated today. Temp Pulse Resp BP Pulse Ox 99.2 F 69 18 101/56 95 05/23/19 07:00 05/23/19 07:00 05/23/19 07:00 05/23/19 07:00 05/23/19 07:00 General appearance: Present: A&O X 3, pleasant, no acute distress, answers questions appropriately - Patient Status Disposition: Transfer Short-Term Hosp Condition: Fair Functional capacity at discharge: uses cane/walker Overall status at discharge: patient is not back to baseline - Discharge Instructions Follow Up With: Umair Littlejohn MD [Primary Care Provider] - - Diet and Activity Activity: increase activity as tolerated Diet: diabetic diet
[2019-05-23 12:01] VITALS: BP 110/64
--- NOTE | 2019-05-24 12:50 | Electrocardiograph Report ---
[place] [id number] Test Date: 2019-05-21 Pat Name: Jayant Mccoy Department: EDG1 Room: 115 Gender: Digital Art Director: : [id number] Requested By: Mikel Simpson Order Number: [id number] Reading MD: Sonia Zamora Measurements Intervals [place] Rate: 112 P: 63 [place]: 141 QRS: 42 QRSD: 92 T: 1 QT: 336 QTc: 459 Interpretive Statements Sinus tachycardia Abnormal R-wave progression, early transition Borderline T abnormalities, inferior leads Electronically Signed On 05-24-2019 12:48:39 EDT by Sonia Zamora
== END 2019-05-23 15:40 | disposition short-term general hospital (02) ==
LOC: INPGRE 21:05 → EMEROOGRE 21:05 → INPGRE 05-22 08:27